=== PATIENT | male | born 1990 | race Caucasian/White ===

== ENCOUNTER 2017-11-19 10:11 | Emergency (ER) | END 2017-11-19 10:48 | disposition home or self-care (01) ==

== ENCOUNTER 2018-01-05 21:26 | Emergency (ER) | END 2018-01-06 00:56 | disposition home or self-care (01) ==

== ENCOUNTER 2018-03-28 18:29 | Emergency (ER) | END 2018-03-28 22:44 | disposition home or self-care (01) ==

== ENCOUNTER 2018-04-08 09:32 | Emergency (ER) | END 2018-04-08 11:58 | disposition home or self-care (01) ==